=== PATIENT | female | born 1980 | race Hispanic/Latino ===

== ENCOUNTER 2017-02-22 10:29 | Emergency (ER) | payer BC ==
[2017-02-22] VITALS (7 sets, daily range): BP systolic 102–142; BP diastolic 77–86
[~2017-02-22] VITALS: Ht 162.6 cm; Wt 54.4 kg
[~2017-02-22 10:29] MED LIST: BENADRYL25 MG ORAL; NKM; PREDNISONE20 MG ORAL; RANITIDINE HCL150 MG ORAL
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
[2017-02-22] MEDS ORDERED: Meclizine 25mg tab ORAL ONE (10:45)
[2017-02-22 11:08] LABS: APPEARANCE,URINE CLEAR; KETONES,URINE 1+ (NEGATIVE); LEUKOCYTE ESTERASE ,URINE 1+ (NEGATIVE); MEAN CORPUSCULAR HEMOGLOBIN 31.2 PG (27.0-31.0); MEAN CORPUSCULAR HGB CONC 33.1 G/DL (32.0-36.0); MEAN CORPUSCULAR VOLUME 94 FL (80-99); MEAN PLATELET VOLUME 11.1 FL (6.5-10.1); NITRITE,URINE NEGATIVE (NEGATIVE); PH,URINE 6 (4.5-8.0); PLATELET COUNT 142 K/UL (150-450); PROTEIN,URINE NEGATIVE (NEGATIVE); RED BLOOD COUNT 4.36 M/UL (4.20-5.40); RED CELL DISTRIBUTION WIDTH 11.4 % (11.6-14.8); UROBILINOGEN,URINE NORMAL MG/DL (0.0-1.0); WHITE BLOOD COUNT 3.2 K/UL (4.8-10.8)
[2017-02-22 11:13] LABS: INR 0.9 (0.9-1.1); PROTHROMBIN TIME 9.1 SEC (9.30-11.50)
[2017-02-22 11:18] LABS: BACTERIA,URINE OCCASIONAL /HPF; RBC,URINE 0-2 /HPF (0 - 2); SQUAMOUS EPITHELIAL CELL,UR OCCASIONAL /LPF (NONE/OCC); WBC,URINE 0-2 /HPF (0 - 2)
[2017-02-22 11:23] LABS: ALANINE AMINOTRANSFERASE 13 U/L (3-33); ALBUMIN/GLOBULIN RATIO 0.9 (1.0-2.7); ANION GAP 18 (5-15); ASPARTATE AMINO TRANSFERASE 19 U/L (5-40); CALCIUM 9.2 mg/dL (8.6-10.2); CARBON DIOXIDE 21 mEQ/L (20-30); CHLORIDE 100 mEQ/L (98-107); CREATININE 0.9 mg/dL (0.5-0.9); GLOMERULAR FILTRATION RATE > 60 mL/min (>60); HEMOLYSIS 26; POTASSIUM 4.3 mEQ/L (3.4-4.9); SODIUM 139 mEQ/L (135-145); TOTAL PROTEIN 8.7 g/dL (6.6-8.7)
[2017-02-22 11:33] LABS: BAND NEUTROPHILS % (MANUAL) 0 % (0-8); BASOPHILS % (MANUAL) 0 % (0-2); EOSINOPHILS % (MANUAL) 0 % (0-3); LYMPHOCYTES % (MANUAL) 50 % (20-45); NEUTROPHILS % (MANUAL) 44 % (45-75); PLATELET ESTIMATE ADEQUATE; PLATELET MORPHOLOGY NORMAL; TOTAL CELLS COUNTED 100
[2017-02-22] MEDS ORDERED: TRAMADOL HCL50 MG ORAL (17:10)
[2017-02-22] MEDS ORDERED: TYLENOL325 MG ORAL (17:10)
--- NOTE | 2017-02-23 09:55 | Diagnostic Imaging Report ---
Indication: Neck pain Technique: CT angiogram of the neck was performed utilizing automated exposure control with intravenous contrast. Axial, sagittal and coronal reconstructions were obtained. 3-D volumetric reconstructions were also performed. NASCET criteria utilized for stenosis grading. CT dose: Total DLP 1632 mGycm; CTDI vol 55.6 mGy Comparison: None Findings: There is bovine configuration of the aortic arch. There is significant streak artifact obscuring evaluation of portions of the proximal common and right subclavian arteries. The bilateral common carotid arteries are otherwise patent without significant stenosis. The bilateral vertebral arteries are also patent without significant stenosis. There is no gross evidence of dissection. The bilateral vertebral arteries are patent without significant stenosis or obvious dissection. Cervical spine demonstrates no acute abnormality. There is minimal mucosal thickening of the maxillary sinuses. The mastoid air cells are clear. The visualized intracranial compartment is unremarkable. Impression: Dense artifact limiting evaluation of the proximal right common carotid and subclavian arteries. Otherwise patent cervical arteries without significant stenosis or definitive evidence of dissection. Clinical correlation recommended. The CT scanner at [facility] is accredited by the [employer] and the scans are performed using protocols designed to limit radiation exposure to as low as reasonably achievable to attain images of sufficient resolution adequate for diagnostic evaluation.
--- NOTE | 2017-02-23 10:20 | Diagnostic Imaging Report ---
Indication: Chest pain Technique: CT pulmonary angiogram performed utilizing automated exposure control with intravenous contrast. Axial, sagittal and coronal reconstructions were obtained. 3-D volumetric reconstructions were also performed. CT dose: Total DLP 722 mGycm; CTDI vol 19.2 mGy Comparison: Chest x-ray 07/20/14 Findings: There is suboptimal opacification of the distal pulmonary arteries but no central pulmonary embolus is identified. There is no aortic dissection. The heart size is normal. The lungs are clear. No paracardial or pleural effusions are identified. There is no bulky adenopathy. The osseous structures demonstrate no acute abnormality. Impression: No central pulmonary embolus or aortic dissection. Clinical correlation recommended. The CT scanner at [facility] is accredited by the [employer] and the scans are performed using protocols designed to limit radiation exposure to as low as reasonably achievable to attain images of sufficient resolution adequate for diagnostic evaluation.
--- NOTE | 2017-02-27 23:09 | Cardiology Report ---
APPROVED REPORT EKG Measurement Heart [id number] Normal sinus rhythm Normal ECG
== END 2017-02-22 17:40 | disposition home or self-care (01) ==
LOC: EDBD 10:29 → EMR 10:41
DX: R55 Syncope and collapse (principal); S13.4XXA Sprain of ligaments of cervical spine, initial encounter; W19.XXXA Unspecified fall, initial encounter; Y92.89 Other specified places as the place of occurrence of the external cause
CPT/HCPCS: 36415; 70498; 71275; 80053; 81001; 81025; 84484; 85007; 85025; 85379; 85610; 85730; 93005; 99284; Q9967